=== PATIENT | female | born 1970 | race Caucasian/White ===

== ENCOUNTER 2017-11-27 09:52 | Emergency (ER) | payer MEDICAID ==
[~2017-11-27] VITALS: Ht 170.2 cm; Wt 79.0 kg
[2017-11-27] MEDS ORDERED: normal saline 1000ML IV soln IVB ONE (10:00)
[2017-11-27] MEDS ORDERED: metoprolol tartrate 1mg/ml inj IV ONE (10:15)
[2017-11-27 10:26] LABS: BASOPHILS % (AUTO) 0.5 % (0-1); EOSINOPHILS # (AUTO) 0.1 X10'3 (0-0.9); EOSINOPHILS % (AUTO) 0.8 % (0-6); HEMATOCRIT 28.8 % (35.0-45.0); HEMOGLOBIN 8.8 g/dl (12.0-16.0); LYMPHOCYTES # (AUTO) 3.3 X10'3 (1.1-4.8); LYMPHOCYTES % (AUTO) 53.2 % (21-51); MEAN CORPUSCULAR HEMOGLOBIN 18.7 PG (27.0-31.0); MEAN CORPUSCULAR HGB CONC 30.4 % (33.0-36.5); MEAN CORPUSCULAR VOLUME 61.6 FL (78-98); MEAN PLATELET VOLUME 8.6 FL (7.4-10.4); MONOCYTES # (AUTO) 0.6 X10'3 (0-0.9); MONOCYTES % (AUTO) 9.9 % (2-12); NEUTROPHILS # (AUTO) 2.2 X10'3 (1.8-7.7); NEUTROPHILS % (AUTO) 35.6 % (42-75); PLATELET COUNT 305 X10'3 (140-440); RED BLOOD COUNT 4.68 X10'6 (4.20-5.60); WHITE BLOOD COUNT 6.1 X10'3 (4.5-11.0)
[2017-11-27 10:35] LABS: INR 0.9 INR; PARTIAL THROMBOPLASTIN TIME 23 SECONDS (22-32); PROTHROMBIN TIME 9.5 SECONDS (9.0-12.0)
[2017-11-27 10:40] LABS: ALANINE AMINOTRANSFERASE 20 U/L (12-78); ALBUMIN 3.5 G/DL (3.4-5.0); ALBUMIN/GLOBULIN RATIO 0.9 (1.1-1.5); ALKALINE PHOSPHATASE 174 IU/L (46-116); ANION GAP 7 (8-16); ASPARTATE AMINO TRANSFERASE 27 U/L (10-37); BILIRUBIN,TOTAL 0.2 MG/DL (0.1-1.0); BLOOD UREA NITROGEN 16 MG/DL (7-18); CALCIUM 8.6 MG/DL (8.5-10.1); CHLORIDE 102 MMOL/L (99-107); CREATININE 0.84 MG/DL (0.40-0.90); GLUCOSE 86 MG/DL (70-104); POTASSIUM 3.9 MMOL/L (3.5-5.1); SODIUM 138 MMOL/L (135-145); TOTAL CARBON DIOXIDE 29.1 MMOL/L (24-32); TOTAL PROTEIN 7.3 G/DL (6.4-8.2); eGFR 73 ML/MIN
[2017-11-27 10:43] LABS: ETHANOL < 0.010 GM/DL (0.0-0.010); TROPONIN I < 0.04 NG/ML (0.0-0.05)
[2017-11-27 11:13] LABS: CLARITY,URINE CLEAR (Clear); COLOR,URINE STRAW (Yellow); GLUCOSE, URINE NEGATIVE (Neg); KETONES,URINE NEGATIVE (Neg); LEUKOCYTE ESTERASE ,URINE SMALL (Neg); NITRITES, URINE POSITIVE (Neg); OCCULT BLOOD,URINE NEGATIVE (Neg); PROTEIN,URINE NEGATIVE (Neg); UROBILINOGEN,URINE 0.2 E.U/dL (0.2-1.0)
[2017-11-27 11:14] LABS: UA COLLECTION TYPE CLN CATCH MIDSTREAM
[2017-11-27 11:16] LABS: URINE AMPHETAMINE SCREEN NEGATIVE (Neg); URINE BARBITUATE SCREEN NEGATIVE (Neg); URINE BENZODIAZEPINES SCREEN NEGATIVE (Neg); URINE CANNABINOID SCREEN NEGATIVE (Neg); URINE COCAINE SCREEN NEGATIVE (Neg); URINE METHADONE SCREEN NEGATIVE (Neg); URINE OPIATE SCREEN NEGATIVE (Neg); URINE PHENCYCLIDINE SCREEN NEGATIVE (Neg)
[2017-11-27 11:21] LABS: BACTERIA,URINE 4+ /HPF (Neg); RBC,URINE NONE SEEN /HPF (0-2); SQUAMOUS EPITHELIAL CELL,UR FEW /LPF (FEW); WBC CLUMPS,URINE FEW /HPF (NEGATIVE)
[2017-11-27] MEDS ORDERED: NO HOME MEDS (11:23)
[2017-11-27 11:25] LABS: ANISOCYTOSIS 2+; MICROCYTOSIS 2+; PLATELET ESTIMATE NORMAL
[2017-11-27 11:26] LABS: POLYCHROMASIA FEW
[2017-11-27 11:27] LABS: HYPOCHROMASIA 2+
[2017-11-27 13:30] VITALS: BP 131/85
[2017-11-27] MEDS ORDERED: MESSAGE TO NURSING IV SCH (13:30)
== END 2017-11-27 14:27 | disposition short-term general hospital (02) ==
LOC: ER 09:52
DX: I63.9 Cerebral infarction, unspecified (principal); I47.1 Supraventricular tachycardia; I10 Essential (primary) hypertension; F17.200 Nicotine dependence, unspecified, uncomplicated; E78.00 Pure hypercholesterolemia, unspecified; G89.29 Other chronic pain; Z90.49 Acquired absence of other specified parts of digestive tract; Z56.0 Unemployment, unspecified
CPT/HCPCS: 36415; 70450; 70544; 70551; 71045; 80053; 80305; 80320; 81001; 82948; 84484; 85025; 85610; 85730; 87070; 87077; 87088; 87186; 93005; 96374; 99291; 99292; J3490; J7030